=== PATIENT | female | born 1945 | race Caucasian/White ===

== ENCOUNTER 2017-06-10 15:07 | Inpatient (IN) | payer OTHER ==
[~2017-06-10] VITALS: Ht 162.6 cm; Wt 124.0 kg
--- NOTE | ~2017-06-10 | H ---
[address] [address] HISTORY AND PHYSICAL Name: MARITZA IBRAHIM Room: [address] IN .R.#: [id number] Admission: 06/10/17 Attend Phys: Stephanie Betancourt MD Discharge: 06/10/17 Date of : 45 Report #: [id number] THIS REPORT FOR: //name// For History and Physical please refer to the handwritten note in the patient's medical record. By: [facility] Staff TALI /ZAMZAM
[2017-06-10 15:44] VITALS: BP 69/39
[2017-06-10] MEDS ORDERED: LANTUS SOL100 UNIT/1 SUBQ (15:49)
[2017-06-10] MEDS ORDERED: LISINOPRIL20 MG PO (15:49)
[2017-06-10] MEDS ORDERED: COREG25 MG PO (15:49)
[2017-06-10] MEDS ORDERED: HUMALOG100 UNIT/2 SUBQ (15:49)
[2017-06-10] MEDS ORDERED: HYDROCHLOROTH12.5 M1 PO (15:50)
[2017-06-10 16:53] VITALS: BP 00/000
[2017-06-10 17:35] LABS: HEMATOCRIT 46.4 % (37.0-47.0); HEMOGLOBIN 14.4 gm/dL (12.0-15.0); MCH 30.5 pg (26.0-34.0); MCHC 31.1 g/dL (28.0-37.0); MCV 98.2 fL (80.0-100.0); MPV 8.3 fl. (7.2-11.1); NUCLEATED RBCS 2 /100WBC; PLATELET COUNT* 132 thou/uL (150-400); RBC 4.73 mil/uL (4.20-5.00); RDW-CV 14.8 % (10.5-14.5); WBC 14.1 thou/uL (4.0-11.0)
[2017-06-10 17:37] LABS: APTT 60.3 Seconds (25.0-31.3); INR 1.9; PROTIME 18.8 Seconds (9.20-11.50)
[2017-06-10 17:39] LABS: CREATININE 1.9 mg/dL (0.6-1.3); POTASSIUM 5.5 mmol/L (3.5-5.1)
[2017-06-10 17:45] LABS: ALBUMIN 1.4 g/dL (3.4-5.0); TOTAL BILIRUBIN 0.5 mg/dL (<0.1-1.0)
[2017-06-10 18:16] LABS: TROPONIN-I LEVEL 1.36 ng/mL (<0.06)
[2017-06-10 18:45] LABS: ABSOLUTE BASOPHILS 0.1 thou/uL (0.0-0.2); ABSOLUTE EOSINOPHILS 0.1 thou/uL (0.0-0.7); ABSOLUTE LYMPHOCYTES 3.8 thou/uL (0.8-5.3); ABSOLUTE MONOCYTES 0.7 thou/uL (0.0-1.2); ABSOLUTE NEUTROPHILS 9.3 thou/uL (1.6-8.1)
[2017-06-10 18:56] LABS: PLATELET ESTIMATE DECREASED
[2017-06-10 18:57] LABS: MACROCYTES 1+; POLYCHROMASIA Occasional
--- NOTE | 2017-06-11 17:15 | EKG ---
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1945 Requested By: Stephanie Betancourt Order Number: [id number] Roel MD: Sandeep Mack Measurements Intervals [place] Rate: 88 P: 20 TX: 170 QRS: 128 QRSD: 147 T: -14 QT: 406 QTc: 492 Interpretive Statements Sinus rhythm Biatrial enlargement Right bundle branch block Lateral infarct, acute No previous ECG available for comparison Electronically Signed On 06-11-2017 17:15:40 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
--- NOTE | 2017-06-11 17:16 | EKG ---
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1945 Requested By: Stephanie Betancourt Order Number: [id number] Roel MD: Sandeep Mack Measurements Intervals [place] Rate: 87 P: 18 MA: 168 QRS: 129 QRSD: 140 T: -24 QT: 407 QTc: 490 Interpretive Statements Sinus rhythm LAE, consider biatrial enlargement Right bundle branch block Lateral infarct, recent Baseline wander in lead(s) V5 No previous ECG available for comparison Electronically Signed On 06-11-2017 17:15:46 [employer] by Sandeep Mack [email or web address] <ELECTRONICALLY SIGNED> By: Sandeep Mack MD, [facility] 06/11/17 1715 1522 1522 Sandeep Mack MD, [facility] /EPI
== END 2017-06-10 22:00 | DRG 208 ==
LOC: M.ERS 15:07 → M.ICU 17:08 → M.TBA-ER 17:08 → M.ICU 17:11
PROVIDERS: Emergency Medicine Emergency Medical Services; ADMIT Internal Medicine
PROC: 5A12012 Performance of Cardiac Output, Single, Manual (ICD-10-PCS; principal; 2017-06-10)
PROC: 5A1935Z Respiratory Ventilation, Less than 24 Consecutive Hours (ICD-10-PCS; 2017-06-10)
PROC: 06HM33Z Insertion of Infusion Device into Right Femoral Vein, Percutaneous Approach (ICD-10-PCS; 2017-06-10)
PROC: 0BH17EZ Insertion of Endotracheal Airway into Trachea, Via Natural or Artificial Opening (ICD-10-PCS; 2017-06-10)
DX: I26.99 Other pulmonary embolism without acute cor pulmonale (principal); I46.9 Cardiac arrest, cause unspecified; E78.5 Hyperlipidemia, unspecified; E11.9 Type 2 diabetes mellitus without complications; I10 Essential (primary) hypertension; Z86.718 Personal history of other venous thrombosis and embolism; Z90.710 Acquired absence of both cervix and uterus; Z79.4 Long term (current) use of insulin; Z79.899 Other long term (current) drug therapy